=== PATIENT | male | born 1940 | race Hispanic/Latino ===

== ENCOUNTER → 2018-12-02 | Outpatient (CLI) | payer OTHER | END | disposition home or self-care (01) | LOC: LAB 11:20 | PROVIDERS: ATTEND Internal Medicine Gastroenterology | DX: K31.89 Other diseases of stomach and duodenum (principal); R19.7 Diarrhea, unspecified | CPT/HCPCS: 36415; 86677; 87507 ==

== ENCOUNTER → 2022-03-26 | Outpatient (CLI) | payer OTHER ==
[~2022-03-26] MED LIST: GADOTERATE MEGLUMINE 10 MMOL/20 ML VIAL IV ONE
== END | disposition home or self-care (01) ==
LOC: RAH 10:11
PROVIDERS: ATTEND Surgery Surgical Oncology
DX: C23 Malignant neoplasm of gallbladder (principal)
CPT/HCPCS: 74183; A9575